=== PATIENT | male | born 1985 | race Caucasian/White ===

== ENCOUNTER 2018-10-01 12:33 | Outpatient (CLI) | payer BC | END 2018-10-01 12:34 | disposition home or self-care (01) | LOC: ULT 12:33 | PROVIDERS: ATTEND Family Medicine | DX: I49.3 Ventricular premature depolarization (principal); I49.9 Cardiac arrhythmia, unspecified; I34.0 Nonrheumatic mitral (valve) insufficiency | CPT/HCPCS: 93306 ==

== ENCOUNTER 2018-10-09 12:46 | Outpatient (CLI) | payer BC | END 2018-10-09 12:47 | disposition home or self-care (01) | PROVIDERS: ATTEND Family Medicine | DX: I49.3 Ventricular premature depolarization (principal); Z11.3 Encounter for screening for infections with a predominantly sexual mode of transmission | CPT/HCPCS: 36415; 86694; 86695; 86696; 86780; 87389; 87491; 87591; 93225; 93226 ==